=== PATIENT | male | born 1950 ===

== ENCOUNTER 2020-11-08 11:31 | Emergency (ER) | payer MEDICARE, BC ==
--- NOTE | 2020-11-08 11:34 | EDM.PDOC ---
ED HPI GENERAL MEDICAL PROBLEM - General Stated Complaint: LFT EAR HURTS FROM QTIP Time Seen by Provider: 11/08/20 11:33 Source of Information: Reports: Patient History Limitations: Reports: No Limitations - History of Present Illness INITIAL COMMENTS - FREE TEXT/NARRATIVE: HISTORY AND PHYSICAL: History of present illness: Patient is a 70-year-old male who presents to the ED today with concern of possi ble cerumen impaction of his left ear. Patient states that he was using a Q-tip in his left ear last night and he felt himself pushed the wax and deeper. Patient states that since then he has had decreased hearing out of his left ear. Patient denies any pain of his left ear but states that he is unable to hear out of it. Patient denies any foreign body. Patient denies any other symptoms or concerns. Patient denies fever, chills, chest pain, shortness of breath, or cough. Denies headache, neck stiff ness, change in vision, syncope, or near syncope. Denies nausea, vomiting, abdominal pain, diarrhea, constipation, or dysuria. Has not noted any blood in urine or stool. Patient has been eating and drinking appropriately. Review of systems: As per history of present illness and below otherwise all systems reviewed and negative. Past medical history: As per history of present illness and as reviewed below otherwise noncontributory. Surgical history: As per history of present illness and as reviewed below otherwise noncontributory. Social history: See social history for further information Family history: As per history of present illness and as reviewed below otherwise non contributory. Physical exam: General: Patient is alert, oriented, and in no acute distress. Patient sitting comfortably on exam table. Vitals stable and reviewed by me. HEENT: atraumatic, normocephalic, pupils equal and reactive bilaterally, negative for conjunctival pallor or scleral icterus, mucous membranes moist, Right TM is normal, unable to visualize the left TM due to cerumen impaction, ne gative mastoid tenderness bilaterally, throat clear, neck supple, nontender, trachea midline. No drooling or trismus noted. No meningeal signs. No hot potato voice noted. Lungs: Clear to auscultation, breath sounds equal bilaterally, chest nontender. Heart: S1S2, regular rate and rhythm without overt murmur Abdomen: Soft, nondistended, nontender. Negative for masses or hepatosplenomegaly. Negative for costovertebral tenderness. Pelvis: Stable nontender. Genitourinary: Deferred. Rectal: Deferred. Skin: Intact, warm, dry. No lesions or rashes noted. Extremities: Atraumatic, negative for cords or calf pain. Neurovascular unremarkable. Neuro: Awake, alert, oriented. Cranial nerves II through XII unremarkable. Cerebellum unremarkable. Motor and sensory unremarkable throughout. Exam nonfocal. Notes: After cerumen was irrigated, I was able to visualize patients TM and it is intact, not erythematous or bulging, and within normal limits. Discussed the importance for follow up with a primary care provider. Signs and symptoms that would prompt return to the ED thoroughly discussed with patient. Voices understanding and is agreeable to plan of care. Denies any further questions or concerns at this time. Diagnostics: None Therapeutics: Colace with cerumen irrigation Prescription: None Impression: Cerumen impaction, left Plan: 1. Use at home debrox drops over the counter as discussed. Follow up with a primary care provider as discussed. Return to the ED as needed and as discussed. Definitive disposition and diagnosis as appropriate pending reevaluation and review of above. - Related Data Allergies Allergy/AdvReac Type Severity Reaction Status Date / Time No Known Allergies Allergy Verified 11/08/20 12:00 Home Meds: Home Meds . [No Known Home Meds] 11/08/20 [History] ED ROS GENERAL - Review of Systems Review Of Systems: Comprehensive ROS is negative, except as noted in HPI. ED EXAM, GENERAL - Physical Exam Exam: See Below (see dictation) Course - Vital Signs Last Recorded V/S: Last Vital Signs Temp 97.3 F 11/08/20 12:00 Pulse 82 11/08/20 12:00 Resp 17 11/08/20 12:00 BP 141/95 H 11/08/20 12:00 Pulse Ox 98 11/08/20 12:00 - Orders/Labs/Meds Meds: Medications Discontinued Medications Generic Name Dose Route Start Last Admin Trade Name Freq PRN Reason Stop Dose Admin Docusate Sodium 200 mg 11/08/20 12:06 11/08/20 12:15 Colace PO 11/08/20 12:07 200 mg NOW STA Administration Departure - Departure Time of Disposition: 12:57 Disposition: Home, Self-Care 01 Clinical Impression: Cerumen impaction Qualifiers: Laterality: left Qualified Code(s): H61.22 - Impacted cerumen, left ear - Discharge Information Instructions: Earwax Buildup, Adult Referrals: PCP,None [Primary Care Provider] - Forms: ED Department Discharge Additional Instructions: The following information is given to patients seen in the emergency department who are being discharged to home. This information is to outline your options fo r follow-up care. We provide all patients seen in our emergency department with a follow-up referral. The need for follow-up, as well as the timing and circumstances, are variable depending upon the specifics of your emergency department visit. If you don't have a primary care physician on staff, we will provide you with a referral. We always advise you to contact your personal physician following an emergency department visit to inform them of the circumstance of the visit and for follow-up with them and/or the need for any referrals to a consulting specialist. The emergency department will also refer you to a specialist when appropriate. This referral assures that you have the opportunity for follow-up care with a specialist. All of these measure are taken in an effort to provide you with optimal care, which includes your follow-up. Under all circumstances we always encourage you to contact your private physician who remains a resource for coordinating your care. When calling for follow-up care, please make the office aware that this follow-up is from your recent emergency room visit. If for any reason you are refused follow-up, please contact the [facility] Emergency Department at and asked to speak to the emergency department charge nurse. [facility] [address] [place] [address] [id number] [id number] 1. Use at home debrox drops over the counter as discussed. Follow up with a primary care provider as discussed. Return to the ED as needed and as discussed. Sepsis Event Note (ED) - Focused Exam Vital Signs: Vital Signs Temp Pulse Resp BP Pulse Ox 11/08/20 12:00 97.3 F 82 17 141/95 H 98
[2020-11-08] MEDS ORDERED: Docusate Sodium 100 MG Cap PO STA ×2 (11:54→12:06)
== END 2020-11-08 13:05 | disposition home or self-care (01) ==
LOC: MW.ED 11:31
DX: H61.22 Impacted cerumen, left ear (principal)
CPT/HCPCS: 69209; 99282; A9270